=== PATIENT | female | born 2000 | race African-American/Black ===

== ENCOUNTER → 2020-01-04 | Outpatient (REF) | payer OTHER ==
[~2020-01-04] MED LIST: CINN500C2 PO; D31000TA2 PO; FISH1000 PO
[2020-01-08 21:06] LABS: CHLAMYDIA RECTAL APTIMA Negative (Negative); GC RECTAL APTIMA Negative (Negative)
== END ==
LOC: M LAB REF 11:19
PROVIDERS: ATTEND Obstetrics & Gynecology
DX: A56.09 Other chlamydial infection of lower genitourinary tract (principal)

== ENCOUNTER 2020-01-09 06:16 | Day surgery (SDC) | payer OTHER ==
[~2020-01-09] VITALS: Ht 162.6 cm; Wt 72.6 kg
[2020-01-09 06:51] LABS: HEMATOCRIT 38.4 % (36.0-47.0); HEMOGLOBIN 12.4 g/dl (12.0-15.5); MEAN CORPUSCULAR HEMOGLOBIN 26.4 pg (27.0-33.0); MEAN CORPUSCULAR HGB CONC 32.3 g/dl (32.0-36.5); MEAN CORPUSCULAR VOLUME 81.9 fl (80.0-96.0); PLATELET COUNT, AUTOMATED 248 10^3/uL (150-450); RED BLOOD COUNT 4.69 10^6/uL (4.00-5.40); WHITE BLOOD COUNT 4.8 10^3/uL (4.0-10.0)
[2020-01-09] MEDS ORDERED: MIDAZOLAM INJ 2MG/2ML VIAL (J2250 PER 1MG) As Ordered ONE (06:55)
[2020-01-09] MEDS ORDERED: fentaNYL 100 MCG/2 ML INJECTION (J3010) As Ordered ONE ×2 (06:55→07:43)
[2020-01-09] MEDS ORDERED: propofoL 200 MG/20 ML VIAL As Ordered ONE (06:55)
[2020-01-09] MEDS ORDERED: ROCURONIUM BROMIDE 50 MG/5 ML VIAL As Ordered ONE ×2 (06:56→07:49)
[2020-01-09] MEDS ORDERED: LIDOCAINE 2% 100MG/5ML SDV (FOR ANES.) As Ordered ONE (06:56)
[2020-01-09] MEDS ORDERED: ONDANSETRON 4MG/2ML VIAL As Ordered ONE (06:57)
[2020-01-09] MEDS ORDERED: dexameTHASONE 4 MG/ML 1ML VIAL (J1100 PER 1MG) As Ordered ONE (06:57)
[2020-01-09] MEDS ORDERED: ACETAMINOPHEN 650 MG SUPP PR ONE (07:00)
[2020-01-09] MEDS ORDERED: LR 1,000 ML IV ONE (07:00)
[2020-01-09] MEDS ORDERED: cefoTEtan DISODIUM 2 GM in D5W MINI-BAG PLUS 50 ML IV ONE (07:00)
[2020-01-09] MEDS ORDERED: METHYLENE BLUE 0.5% (5MG/ML) 10 ML AMP (PROVAYBLUE) As Ordered ONE (07:13)
[2020-01-09] MEDS ORDERED: BUPIVACAINE HCL 0.5% 10ML VIAL As Ordered ONE (07:13)
[2020-01-09 07:14] LABS: BLOOD UREA NITROGEN 10 MG/DL (7-18); CALCIUM LEVEL 9.2 MG/DL (8.5-10.1); CARBON DIOXIDE LEVEL 29 MEQ/L (21-32); CHLORIDE LEVEL 107 MEQ/L (98-107); CREATININE FOR GFR 0.74 MG/DL (0.55-1.30); GLUCOSE, FASTING 94 MG/DL (70-100); HCG, SERUM QUANTITATIVE < 1.0 MIU/ML; POTASSIUM SERUM 4.2 MEQ/L (3.5-5.1); SODIUM LEVEL 139 MEQ/L (136-145)
[2020-01-09] MEDS ORDERED: ACETAMINOPHEN 650 MG SUPP As Ordered ONE (07:14)
[2020-01-09] MEDS ORDERED: FISH1000 PO (08:01)
[2020-01-09] MEDS ORDERED: CINN500C2 PO (08:01)
[2020-01-09] MEDS ORDERED: D31000TA2 PO (08:01)
[2020-01-09] MEDS ORDERED: KETOROLAC 60MG 2ML VIAL As Ordered ONE (08:17)
[2020-01-09] MEDS ORDERED: SUGAMMADEX SODIUM 500 MG/5 ML VIAL (BRIDION) As Ordered ONE (08:18)
[2020-01-09] MEDS ORDERED: ONDANSETRON 4MG/2ML VIAL IV PRN (09:00)
[2020-01-09] MEDS ORDERED: LR 1,000 ML IV SCH (09:00)
[2020-01-09] MEDS ORDERED: fentaNYL 100 MCG/2 ML INJECTION (J3010) IV PRN (09:00)
[2020-01-09] MEDS ORDERED: oxyCODONE 5MG TAB PO PRN (09:00)
[2020-01-09] MEDS ORDERED: KETOROLAC 30 MG/ML 1ML VIAL IV PRN (10:00)
[2020-01-09 10:35] VITALS: BP 117/67
--- NOTE | 2020-01-28 10:04 | RO ---
DATE OF OPERATION: 01/09/2020 PREOPERATIVE DIAGNOSIS: Residual right lower quadrant pain post STD therapy. POSTOPERATIVE DIAGNOSIS: Residual pain post STD therapy. OPERATION PROPOSED: Diagnostic laparoscopy; possible chromotubation; possible removal of tissue. ANESTHESIA: General plus local anesthetic for intraperitoneal procedures. ESTIMATED BLOOD LOSS: Less than 20 mL. SURGEON: Victor Hugo Watson MD DRAGLINE ENGINEER: Dr. Thomas Reyes PROCEDURE: Under adequate anesthesia prepped and draped in lithotomy position. Adequate time out was performed. Acetaminophen suppository 1300 mg per rectum, antibiotics appropriately postop STD therapy and sequentials in place. Weighted speculum was placed in the vagina. Bladder was drained for 150 mL of clear urine. Cervix was visualized, very long strings were noted and the IUCD was not in the appropriate place, it was in the exo/endocervix. The IUCD was removed and will be replaced at the end of the procedure. The uterus sounded to depth of 8 cm. It was anteverted, anteflexed. The uterine manipulator with dye was placed into the uterine cavity and removing the speculum. Re-prepping and draping, small subumbilical incision was made. Veress needle was applied. 3.8 liters of CO2 at flow of 14 to pressure of 15, direct entry with 3 mm camera. 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 She had a very enlarged gallbladder, did not appear to be inflammatory in nature but significantly enlarged. Right round ligament was normal. Left round ligament was normal. Anterior aspect of the bladder was clear. Uterus was midline and normal. The right and left adnexa were large volume ovaries, did not have evidence of ovulation pattern. Both tubes to fimbriated end were visualized and appeared to have a bit of post-inflammatory effect with a little bit of scarring at the fimbria, however. With chromotubation the tubes filled quite promptly and spill was visualized through both fimbriated ends with minimal pressure. Cul-de-sac was clear, no evidence of endometriosis or adhesions. We noted that this lady has large volume stool in the cecum, transverse colon and sigmoid, so significant that it was very heavy to lift with a probe. A 3 mm port was placed on the right side and we tried to move the bowel around, even with deep Trendelenburg it is still quite heavy and I believe this lady has some chronic constipation issues. The appendix was visualized and it was retrocecal. It appeared to be normal, not inflamed, no evidence of endometriosis. The patient also had significant hyperperistalsis of the small bowel. With instrument and pad count correct we deflated to 4 mm pressure, removed the 3 mm port on the right side, removed the mainstem port in the subumbilical area. Subcuticular stitches were placed. Marcaine 0.25% into both sites and Steri-Strips. Attention to the vagina the cervix was again sounded, anteverted, anteflexed. A Mirena IUCD was replaced, lot #[id number], replacement date should be January 08, 2025. Strings were cut appropriately. The IUCD was visualized to be in place. Instrument and pad counts were correct. PLAN OF CARE: Refer on to surgery for her gallbladder; refer on to GI for chronic constipation. The patient was taken to recovery in good condition. TAMIKA
== END 2020-01-09 10:43 | disposition home or self-care (01) ==
LOC: M SDC 06:16
PROVIDERS: ATTEND Obstetrics & Gynecology
DX: R10.31 Right lower quadrant pain (principal); A74.81 Chlamydial peritonitis; K59.00 Constipation, unspecified; K82.8 Other specified diseases of gallbladder; Z30.433 Encounter for removal and reinsertion of intrauterine contraceptive device; Z86.19 Personal history of other infectious and parasitic diseases
CPT/HCPCS: 36415; 49320; 58300; 58301; 58350; 80048; 84702; 85027; 88300; J1100; J1885; J2250; J2405; J3010; J7298; Q9968